=== PATIENT | female | born 2000 | race Caucasian/White ===

== ENCOUNTER 2025-05-15 15:00 | Outpatient (CLI) | payer BC, SELFPAY ==
--- OUTSIDE RECORDS SUMMARY | 2025-05-15 15:28 | XMS_ITS | Clinical Summary ---
Author Organization [facility] Address [address] [place] [address] Care Team Providers Care Medical Research Associate Name Role Phone Fredis Rios MD Primary Care Provider [phone] Allergies Active Allergy Reactions Criticality Noted Date Comments Amoxicillin Rash Low 05/19/2017 Cephalexin Rash 02/25/2013 Medications IBUPROFEN PO Take by mouth. Ac tive azithromycin (ZITHROMAX) 250 MG TabletIndication s:Bilateral otitis media, unspecified otitis media type 2 tab(s) daily for 1 day, then 1 tab(s) daily for days 2-5. 6 Tab 9 Active Additional Information Patient not taking.Reported on 08/27/2020 Active Problems No known active problems Social History Tobacco Use Types Packs/Day Years Used Date Smoking Tobacco: Never Smokeless Tobacco: Never Tobacco Cessation:Counseling Given: Yes Alcohol Use Standard Drinks/Week Comments No 0 (1 standard drink = 0.6 oz pur e alcohol) Comments No Sex and Gender Information Value Date Recorded Sex Assigned at Not on file Legal Sex Female 3:02 AM 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 Gender Identity Not on file Sexual Orientation Not on file Last Filed Vital Signs Vital Sign Reading Time Taken Comments Blood Pressure 110/74 08/27/2020 3:59 PM 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 Pulse 70 08/27/2020 3:59 PM 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 Temperature 36.4 C (97.5 F) 08/27/2020 3:59 PM 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 Respiratory Rate 16 08/27/2020 3:59 PM 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 Oxygen Saturation 99% 08/27/2020 3:59 PM 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 Inhaled Oxygen Concentration - - Weight 68.3 kg (150 lb 9.6 oz) 08/27/2020 3:59 P M 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 Height 179.1 cm (5' 10.5) 08/27/2020 3:59 PM CS T Body Mass Index 21.3 08/27/2020 3:59 PM 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 Plan of Treatment Health Maintenance Due Date Last Done Comments Hepatitis C Virus (HCV) Screening 2001 TdaP Immunization 2001 Human Papillomavirus (HPV) Immunization (1 - 3-dose series) 2016 Meningococcal B Immunization (1 of 2 - Standard) 2017 Hepatitis B Immunization (1 of 3 - 19+ 3-dose series) 2020 Pap Smear 2022 Influenza Immunization (#1) 2025 SARS-COV-2 Immunization (3 - 2024- season) 2025 05/01/2021, 03/24/2021 Respiratory Syncytial Virus (RSV) Immunization (Adult) (1 - 1-dose 75+ series) 2076 Meningococcal Immunization (ACWY) Aged Out No longer eligible b ased on patient's age to complete this topic Pneumococcal Immunization Combined Aged Out No longer eligible b ased on patient's age to complete this topic Rotavirus Immunization Aged Out No lo nger eligible based on patient's age to complete this topic Insurance [facility] Care Teams Medical Research Associate Relationship Specialty Start Date End Date Fredis Rios MD [address] [place] [address] PCP - General Pediatrics 02/25/13
[2025-05-15 16:04] LABS: Hemoglobin A1C 5.2 % (<5.7)
[2025-05-15 16:09] LABS: Thyroid Stimulating Hormone 1.620 uIU/mL (0.465-4.680)
[2025-05-16 07:09] LABS: FSH 3.7 mIU/mL (.); LH 6.2 mIU/mL (.)
[2025-05-20 14:08] LABS: Estradiol, Sensitive 58.7 pg/mL (.)
[2025-05-23 04:07] LABS: Free Testosterone (Direct) 0.4 pg/mL (0.0-4.2)
== END 2025-05-15 15:01 | disposition home or self-care (01) ==
LOC: ANHLAB 15:01
PROVIDERS: Visit Provider Student in an Organized Health Care Education/Training Program
DX: N92.6 Irregular menstruation, unspecified (principal)
CPT/HCPCS: 36415; 82670; 83001; 83002; 83036; 84144; 84146; 84443